=== PATIENT | female | born 1945 | race Hispanic/Latino ===

== ENCOUNTER → 2019-02-06 | Outpatient (CLI) | payer OTHER | END | disposition home or self-care (01) | LOC: RAH 07:40 | PROVIDERS: ATTEND Family Medicine | DX: R10.11 Right upper quadrant pain (principal); Z90.49 Acquired absence of other specified parts of digestive tract | CPT/HCPCS: 76700 ==

== ENCOUNTER → 2020-02-27 | Outpatient (CLI) | payer OTHER | END | disposition home or self-care (01) | LOC: RAH 12:20 | PROVIDERS: ATTEND Family Medicine | DX: R10.2 Pelvic and perineal pain (principal) | CPT/HCPCS: 76856 ==

== ENCOUNTER → 2020-03-18 | Outpatient (CLI) | payer OTHER ==
[~2020-03-18] MED LIST: IOHEXOL-350 75 ML VIAL IV ONE
== END | disposition home or self-care (01) ==
LOC: RAH 07:53
PROVIDERS: ATTEND Family Medicine
DX: R22.1 Localized swelling, mass and lump, neck (principal); E04.2 Nontoxic multinodular goiter; Z90.710 Acquired absence of both cervix and uterus; Z90.49 Acquired absence of other specified parts of digestive tract
CPT/HCPCS: 74170; 76536; Q9967

== ENCOUNTER → 2020-04-14 | Outpatient (CLI) | payer OTHER ==
[~2020-04-14] MED LIST changes: +GADODIAMIDE 10 MMOL/20 ML VIAL IV ONE; -IOHEXOL-350 75 ML VIAL IV ONE
== END | disposition home or self-care (01) ==
LOC: RAH 08:32
PROVIDERS: ATTEND Family Medicine
DX: N28.89 Other specified disorders of kidney and ureter (principal); D48.3 Neoplasm of uncertain behavior of retroperitoneum
CPT/HCPCS: 74183; A9579

== ENCOUNTER 2020-05-18 07:44 | Day surgery (SDC) | payer OTHER ==
[2020-05-18] VITALS (7 sets, daily range): BP systolic 137–222; BP diastolic 40–74
[~2020-05-18] VITALS: Ht 162.6 cm; Wt 90.8 kg
[2020-05-18 08:35] LABS: INR 0.94 (0.85-1.15); PROTHROMBIN TIME 10.2 SEC (9.6-11.6)
[2020-05-18] MEDS ORDERED: LOSARTAN 50 MG TABLET PO SCH (08:38)
[2020-05-18] MEDS ORDERED: HYDROCHLOROTHIAZIDE 25 MG TABLET PO SCH (08:38)
[2020-05-18] MEDS ORDERED: HYDROCHLOROTHIAZIDE 25 MG TABLET ONE (08:43)
[2020-05-18] MEDS ORDERED: MIDAZOLAM HCL 1 MG/ML 2ML VIAL ONE (09:49)
[2020-05-18] MEDS ORDERED: FENTANYL CITRATE PF 50 MCG/1 ML 2ML VIAL ONE (09:49)
--- NOTE | 2020-05-18 10:20 | NUR ---
RE: CT GD LT RETROPERITONEAL MASS BX PROCEDURE PERFORMED BY DR Emmanuel PERRIN. PUNCTURE SITE LT LOWER BACK. SPECIMEN X5 COLLECTED AND SENT TO LAB. END OF PROCEDURE AT 1005. BIOPSY NEEDLE REMOVED AND DRESSING APPLIED. NO BLEEDING NOTED ON POST CT SCAN. DRESSING DRY AND INTACT. PATIENT TOLERATED PROCEDURE WELL. REPORT GIVEN TO Hermes KWON RN AND PATIENT TRANSPORTED TO DAY PATIENT ROOM 9 VIA BED AT 1020.
== END 2020-05-18 12:41 | disposition home or self-care (01) ==
LOC: DAH 07:44 → EDSTATUS 08:00 → DAH 12:41
PROVIDERS: ATTEND Family Medicine
DX: R19.09 Other intra-abdominal and pelvic swelling, mass and lump (principal); D48.3 Neoplasm of uncertain behavior of retroperitoneum; I10 Essential (primary) hypertension; E03.9 Hypothyroidism, unspecified; T38 Poisoning by, adverse effect of and underdosing of hormones and their synthetic substitutes and antagonists, not elsewhere classified; E11.42 Type 2 diabetes mellitus with diabetic polyneuropathy; Z82.49 Family history of ischemic heart disease and other diseases of the circulatory system; Z90.49 Acquired absence of other specified parts of digestive tract; Z98.890 Other specified postprocedural states; Z98.42 Cataract extraction status, left eye; Z79.899 Other long term (current) drug therapy; Z79.82 Long term (current) use of aspirin; Z79.84 Long term (current) use of oral hypoglycemic drugs; Z79.4 Long term (current) use of insulin; Z79.890 Hormone replacement therapy; Z79.01 Long term (current) use of anticoagulants
CPT/HCPCS: 36415; 49180; 77012; 82948; 85610; 85730; 88305; 88341; 88342; 88360; A4215; A4216; A4221; A4222; A4223 ×3; A4606; A4663; J2250; J3010; 99152; 99153

== ENCOUNTER → 2020-07-16 | Day surgery (SDC) | payer OTHER ==
[~2020-07-16] VITALS: Ht 67.3 cm; Wt 91.7 kg
[~2020-07-16] MED LIST changes: +FENTANYL CITRATE PF 50 MCG/1 ML 2ML VIAL ONE; -GADODIAMIDE 10 MMOL/20 ML VIAL IV ONE; +MIDAZOLAM HCL 1 MG/ML 2ML VIAL ONE
[2020-07-16 08:35] LABS: INR 0.93 (0.85-1.15); PARTIAL THROMBOPLASTIN TIME 25.6 SEC (26.3-35.5); PROTHROMBIN TIME 10.1 SEC (9.6-11.6)
--- NOTE | 2020-07-16 12:00 | NUR ---
RE: CT GD LT RETROPERITONEAL MASS BX PROCEDURE PERFORMED BY DR Hermes HURD. PUNCTURE SITE LT LOWER BACK. SPECIMEN X3 COLLECTED AND SENT TO LAB. END OF PROCEDURE AT 1135. BIOPSY NEEDLE REMOVED AND DRESSING APPLIED. NO BLEEDING NOTED ON POST CT SCAN. DRESSING DRY AND INTACT. PATIENT TOLERATED PROCEDURE WELL. REPORT GIVEN TO KENNEDI NARAYANAN AND PATIENT TRANSPORTED TO DAY PATIENT VIA STRETCHER AT 1200. POST CHEST X-RAY ORDERED AT 1300.
--- NOTE | 2020-07-16 13:50 | NUR ---
GAVE REPORT TO EVENS KEARNEY RN NO CONCERNS.
--- NOTE | 2020-07-16 13:50 | NUR ---
RECEIVED REPORT FROM EILEEN DANIEL RN AT BEDSIDE USING SBAR. PATIENT LAYING IN BED, VITAL SIGNS STABLE, NO C/O PAIN. DRESSING TO BACK WITH 4X4 AND TAPE. NO BLEEDING OR DRAINAGE NOTED. WILL CONTINUE TO MONITOR PATIENT.
--- NOTE | 2020-07-16 15:05 | NUR ---
DISCHARGE INSTRUCTIONS PROVIDED TO PATIENT, HANDOUT PROVIDED TO PATIENT REGARDING INCISION CARE. PATIENT INSTRUCTED TO REMOVE DRESSING IN 24 HOURS AND SHOWER. LEAVE OPEN TO AIR OR COVER WITH BANDAID. PATIENT VERBALIZED UNDERSTANDING. DRESSING TO BACK DRY/INTACT. NO SIGNS OF BLEEDING OR DRAINAGE. PATIENT DISCHARGED FROM FACILITY VIA WHEELCHAIR AND ASSISTED INTO PRIVATE VEHICLE DRIVEN BY SPOUSE.
== END ==
LOC: EDSTATUS 07-07 08:00 → DAH 07:53
PROVIDERS: ATTEND Family Medicine
DX: R19.09 Other intra-abdominal and pelvic swelling, mass and lump (principal); D48.3 Neoplasm of uncertain behavior of retroperitoneum; I10 Essential (primary) hypertension; E11.42 Type 2 diabetes mellitus with diabetic polyneuropathy; E11.51 Type 2 diabetes mellitus with diabetic peripheral angiopathy without gangrene; E78.49 Other hyperlipidemia; E26.1 Secondary hyperaldosteronism; E03.9 Hypothyroidism, unspecified; I70.203 Unspecified atherosclerosis of native arteries of extremities, bilateral legs; Z79.01 Long term (current) use of anticoagulants; Z79.84 Long term (current) use of oral hypoglycemic drugs; Z79.4 Long term (current) use of insulin; Z79.899 Other long term (current) drug therapy; Z79.890 Hormone replacement therapy; Z79.82 Long term (current) use of aspirin; Z90.49 Acquired absence of other specified parts of digestive tract; Z98.42 Cataract extraction status, left eye; Z82.49 Family history of ischemic heart disease and other diseases of the circulatory system; Z98.890 Other specified postprocedural states
CPT/HCPCS: 36415; 49180; 71045; 77012; 85610; 85730; A4215; A4221; A4222; A4223; A4663; J2250; J3010; 99152; 99153